=== PATIENT | male | born 1955 | race Caucasian/White ===

== ENCOUNTER 2018-10-15 13:45 | Emergency (ER) | payer MEDICARE, BC ==
[2018-10-15] MEDS ORDERED: Albuterol 0.083% 2.5 MG/3 ML Neb Soln NEB ONE (14:16)
[2018-10-15 14:23] LABS: CHLORIDE,CL 105 mEq/L (98-106); SODIUM,NA 140 mEq/L (136-145)
--- NOTE | 2018-10-15 14:56 | EDM.PDOC ---
ED HPI GENERAL MEDICAL PROBLEM - General Chief Complaint: Chest Pain Stated Complaint: CHEST TIGHTNESS Time Seen by Provider: 10/15/18 14:26 Source of Information: Reports: Patient History Limitations: Reports: No Limitations - History of Present Illness INITIAL COMMENTS - FREE TEXT/NARRATIVE: This patient is a 63 year old male that presents to the ER. Patient reports that last night after eating dinner he had some "acid reflux" in his chest. Patient reports that resolved then this morning at 4am he began to not feel well generally, having chest tightness, and a dry cough. Patient reports that as the morning progressed his worst chest tightness was at about 10am this morning and a 2/10 pain tightness scale. Patient reports that he felt mildly short of breath with it. Patent reports he was driving at 10am this morning. Patient reports the tightness stays in the chest and does not radiate. Patient reports he had a stress test about 1 1/2 years ago in [facility] that he said was abnormal, but not enough to warrant interventions per patient. The patient reports he has had chest pain before in the past and was seen in another ER with a negative workup per patient. Patient denies capellan, dizziness, n, v, d, f, congestion, drainage, abd pain, urinary/bowel changes, rashes. Patient reports that he feels like he is maybe getting sick or coming down with something, that is early stages. Onset Date: 10/14/18 Location: Reports: Chest Quality: Reports: Other (chest "tightness" Acid reflux burning) Severity: Mild Improves with: Reports: None Worsens with: Reports: None Associated Symptoms: Reports: Chest Pain, Cough, Malaise. Denies: Confusion, cough w sputum, Diaphoresis, Fever/Chills, Headaches, Loss of Appetite, Nausea/ Vomiting, Rash, Seizure, Shortness of Breath, Syncope, Weakness Chest Pain Score (Numeric/FACES): 2 - Related Data Allergies Allergy/AdvReac Type Severity Reaction Status Date / Time infliximab [From Remicade] Allergy Cannot Verified 10/15/18 14:02 Remember Home Meds: Home Meds Brimonidine Tartrate/Timolol [Combigan Eye Drops] 1 drop EYELF BID 10/15/18 [ History] Fish Oil/DHA/EPA [Fish Oil 1,200 MG] 1 tab PO DAILY 10/15/18 [History] Terazosin HCl [Terazosin] 15 mg PO DAILY 10/15/18 [History] atorvaSTATin [Lipitor] 10 mg PO MOWEFR 10/15/18 [History] Past Medical History Cardiovascular History: Reports: High Cholesterol, Hypertension Genitourinary History: Reports: Other (See Below) Other Genitourinary History: POLYCYSTIC KIDNEY DISEASE Musculoskeletal History: Reports: Other (See Below) Other Musculoskeletal History: A. SPONDILITIS - Past Surgical History HEENT Surgical History: Reports: Eye Surgery, Naso-Sinus Surgery, Other (See Below) Other HEENT Surgeries/Procedures: TURBINATE REDUCTION Social & Family History - Tobacco Use Smoking Status *Q: Never Smoker - Caffeine Use Caffeine Use: Reports: Coffee - Alcohol Use Days Per Week of Alcohol Use: 7 Number of Drinks Per Day: 2 Total Drinks Per Week: 14 - Recreational Drug Use Recreational Drug Use: No ED ROS GENERAL - Review of Systems Review Of Systems: See Below Constitutional: Reports: Malaise HEENT: Reports: No Symptoms Respiratory: Reports: Shortness of Breath, Pleuritic Chest Pain (He reports it felt like "pleurisy"), Cough. Denies: Wheezing, Sputum, Hemoptysis Cardiovascular: Reports: Chest Pain. Denies: Claudication, Dyspnea on Exertion , Edema, Lightheadedness, Orthopnea, Palpitations, Syncope Endocrine: Reports: No Symptoms GI/Abdominal: Reports: Other ("acid reflux" last night, resolved. ). Denies: Abdominal Pain, Constipation, Distension, Nausea, Vomiting : Reports: No Symptoms Musculoskeletal: Reports: No Symptoms Skin: Reports: No Symptoms Neurological: Reports: No Symptoms. Denies: Confusion, Dizziness, Headache, Numbness, Seizure, Syncope, Tingling, Tremors, Trouble Speaking, Weakness, Change in Speech, Gait Disturbance Psychiatric: Reports: No Symptoms Hematologic/Lymphatic: Reports: No Symptoms Immunologic: Reports: No Symptoms ED EXAM, GENERAL - Physical Exam Exam: See Below Exam Limited By: No Limitations General Appearance: Alert, WD/WN, No Apparent Distress Eye Exam: Bilateral Eye: Normal Inspection, PERRL Ears: Normal External Exam, Normal Canal, Hearing Grossly Normal, Normal TMs Ear Exam: Bilateral Ear: Auricle Normal, Canal Normal, TM normal Nose: Normal Inspection, Normal Mucosa, No Blood Throat/Mouth: Normal Inspection, Normal Lips, Normal Teeth, Normal Gums, Normal Oropharynx, Normal Voice, No Airway Compromise Head: Atraumatic, Normocephalic Neck: Supple, Non-Tender, Full Range of Motion, Other (neck anterior enlargement. Chronic and has benign workup per . ) Respiratory/Chest: No Respiratory Distress, Lungs Clear, No Accessory Muscle Use , Chest Non-Tender, Wheezing (mild expiratory bronchial. ) Cardiovascular: Normal Peripheral Pulses, Regular Rate, Rhythm, No Edema, No Gallop, No JVD, No Murmur, No Rub Peripheral Pulses: 2+: Radial (L), Radial (R), Posterior Tibial (L), Posterior Tibial (R), Dorsalis Pedis (L), Dorsalis Pedis (R) GI/Abdominal: Normal Bowel Sounds, Soft, Non-Tender, No Organomegaly, No Distention, No Abnormal Bruit, No Mass, Pelvis Stable (Male) Exam: Deferred Rectal (Males) Exam: Deferred Back Exam: Normal Inspection, Full Range of Motion Extremities: Normal Inspection, Normal Range of Motion, Non-Tender, No Pedal Edema, Normal Capillary Refill Neurological: Alert, Oriented, Normal Cognition Psychiatric: Normal Affect, Normal Mood Skin Exam: Warm, Dry, Intact, Normal Color, No Rash Lymphatic: No Adenopathy EKG INTERPRETATION EKG Date: 10/15/18 Time: 13:49 Rhythm: NSR Rate (Beats/Min): 88 ST-T: Normal Comparison: NA - No Prior EKG Course - Vital Signs Last Recorded V/S: Last Vital Signs Temp 98.4 F 10/15/18 13:58 Pulse 95 10/15/18 14:29 Resp 16 10/15/18 14:29 BP 170/82 H 10/15/18 14:29 Pulse Ox 100 10/15/18 14:29 - Orders/Labs/Meds Orders: Active Orders 24 hr Category Date Time Status EKG Documentation Completion [RC] STAT Care 10/15/18 14:02 Active RT Aerosol Therapy [RC] ASDIRECTED Care 10/15/18 14:16 Active Chest 2V [CR] Stat Exams 10/15/18 14:02 Taken TROPONIN I [CHEM] Routine Lab 10/15/18 16:00 Ordered Labs: Laboratory Tests 10/15/18 10/15/18 10/15/18 Range/Units 14:02 14:05 14:05 WBC 5.2 (5.0-10.0) 10^3/uL RBC 4.60 (4.50-6.00) 10^6/uL Hgb 14.0 (14.0-18.0) g/dL Hct 43.6 (40.0-54.0) % MCV 94.8 H (82.0-94.0) fL MCH 30.4 (27.0-32.0) pg MCHC 32.1 L (33.0-38.0) g/dL RDW Coeff of James 13.2 (11.0-15.0) % Plt Count 194 (150-400) 10^3/uL Neut % (Auto) 56.1 (35-85) % Lymph % (Auto) 21.5 (10-55) % Cowley % (Auto) 15.7 (0-16) % Eos % (Auto) 5.2 H (0-5) % Baso % (Auto) 1.5 (0-3) % Neut # (Auto) 2.90 (1.80-7.00) 10^3/uL Lymph # (Auto) 1.11 (1.00-4.80) 10^3/uL Cowley # (Auto) 0.81 H (0.00-0.80) 10^3/uL Eos # (Auto) 0.27 (0.00-0.45) 10^3/uL Baso # (Auto) 0.08 10^3/uL PT 10.3 (9.7-12.3) SEC INR 0.99 (0.92-1.18) APTT 29.2 (23.2-32.3) SEC Sodium 140 (136-145) mEq/L Potassium 3.8 (3.5-5.0) mEq/L Chloride 105 (98-106) mEq/L Carbon Dioxide 27 (21-32) mmol/L BUN 20 H (7-18) mg/dL Creatinine 1.1 (0.7-1.3) mg/dL Est Cr Clr Drug Dosing 69.13 mL/min Estimated GFR (MDRD) > 60 (>=60) mL/min Glucose 148 H (75-99) mg/dL Calcium 7.9 L (8.4-10.1) mg/dL Lactate Dehydrogenase 125 (100-190) U/L Creatine Kinase 54 (35-232) U/L Troponin I < 0.017 (0.00-0.06) ng/mL Meds: Medications Discontinued Medications Generic Name Dose Route Start Last Admin Trade Name Kalli PRN Reason Stop Dose Admin Albuterol 2.5 mg 10/15/18 14:16 10/15/18 14:23 Proventil Neb Soln NEB 10/15/18 14:17 2.5 mg ONETIME ONE Administration - Radiology Interpretation Free Text/Narrative:: CXR: no infiltrate, no cardiomegaly, no pulmonary edema. - Re-Assessments/Exams Free Text/Narrative Re-Assessment/Exam: 10/15/18 14:57 Patient was given a breathing tx. Patient reports the breathing treatment did help and his chest tightness is a / now instead of the 12/10. 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 We discussed patient EKG, Labs, ekg, and presentation. Patient had improvement with breathing treatment and he has a dry cough in the ER. Strip Winder reports to discharge the patient and have the patient followup with cardiolgy on Tuesday this week for a recheck. I discussed this with patient, he agrees with this plan. If the 2nd troponin is negative, will discharge patient. Departure - Departure Time of Disposition: 15:50 Disposition: Home, Self-Care 01 Condition: Fair Clinical Impression: Atypical chest pain Acute bronchitis Qualifiers: Bronchitis organism: unspecified organism Qualified Code(s): J20.9 - Acute bronchitis, unspecified Instructions: Nonspecific Chest Pain, [id number], Acute Bronchitis, Adult, [id number] Referrals: PCP,None [Primary Care Provider] - Forms: ED Department Discharge Additional Instructions: Followup with primary care provider this week Followup with Strip Winder Tuesday or Tuesday Pro-Air 90mcg 1-2 puffs every 4-6 hours as needed for chest tightness, shortness of breath #1 take home Please return to the ER for increased chest tightness, shortness of breath, or any concerns - My Orders Last 24 Hours: My Active Orders 10/15/18 14:02 EKG Documentation Completion [RC] STAT Chest 2V [CR] Stat 10/15/18 14:16 RT Aerosol Therapy [RC] ASDIRECTED 10/15/18 16:00 TROPONIN I [CHEM] Routine - Assessment/Plan Last 24 Hours: My Active Orders 10/15/18 14:02 EKG Documentation Completion [RC] STAT Chest 2V [CR] Stat 10/15/18 14:16 RT Aerosol Therapy [RC] ASDIRECTED 10/15/18 16:00 TROPONIN I [CHEM] Routine Plan: PLEASE SEE RN NOTE FOR PFSH.
[2018-10-15] MEDS ORDERED: Albuterol 8 GM Inhaler INH STA (15:52)
== END 2018-10-15 16:35 | disposition home or self-care (01) ==
LOC: CC.ED 13:45
DX: J20.9 Acute bronchitis, unspecified (principal); I10 Essential (primary) hypertension; Z79.899 Other long term (current) drug therapy; Z88.8 Allergy status to other drugs, medicaments and biological substances; R06.02 Shortness of breath
CPT/HCPCS: 36415; 71046; 80048; 82550; 83615; 84484; 85025; 85610; 85730; 93005; 93010; 94640; 99284; 99285; A9270; J7613-GY